=== PATIENT | male | born 1940 | race Caucasian/White ===

== ENCOUNTER → 2019-07-24 | Outpatient (CLI) | payer OTHER, BC ==
[~2019-07-24] MED LIST: ADULT LOW DOSE81 MG PO; CLOPIDOGREL75 MG PO; FLOMAX0.4 MG PO; GLUCOSAMINE CH1 EAC1 PO; LIPITOR40 MG PO; METOPROLOL SUCC50 MG PO; MIRALAX17 GM PO; NAPROXEN500 MG PO; NORCO 5-325 TA1 EAC1 PO; NORVASC 2.5 MG2.5 M1; NORVASC5 MG PO; PACERONE 200 M200 M1 PO; PEPCID20 MG PO; PRESERVISION A1 EAC2 PO; PROSCAR 5MG TABL5 M1 PO; SUPER OMEGA-31000 MG PO; TOLTERODINE TART4 MG PO; UNICOMPLEX M TA1 TA1 PO
== END ==
LOC: SJCVCIMAG 13:48 → SJCVC 13:48
DX: R07.9 Chest pain, unspecified (principal); E78.5 Hyperlipidemia, unspecified; I10 Essential (primary) hypertension; Z79.899 Other long term (current) drug therapy; M19.90 Unspecified osteoarthritis, unspecified site

== ENCOUNTER → 2019-07-31 | Outpatient (CLI) | payer OTHER, BC ==
[~2019-07-31] VITALS: Ht 177.8 cm; Wt 86.2 kg
[~2019-07-31] MED LIST changes: -ADULT LOW DOSE81 MG PO; -CLOPIDOGREL75 MG PO; -LIPITOR40 MG PO; -METOPROLOL SUCC50 MG PO; -MIRALAX17 GM PO; -PACERONE 200 M200 M1 PO; -PEPCID20 MG PO
[2019-07-31 09:29] VITALS: BP 165/73
[2019-07-31 09:48] LABS: HEMATOCRIT 45.6 % (42.0-52.0); HEMOGLOBIN 15.4 gm/dL (14.0-18.0); MCH 29.2 pg (26.0-34.0); MCHC 33.7 g/dL (28.0-37.0); MCV 86.6 fL (80.0-100.0); RBC 5.27 mil/uL (4.50-6.00); RDW 14.2 % (10.5-14.5); WBC 7.3 thou/uL (4.0-11.0)
[2019-07-31 09:58] LABS: CALCIUM 9.8 mg/dL (8.5-10.1); CREATININE 0.9 mg/dL (0.7-1.3); POTASSIUM 4.2 mmol/L (3.5-5.1)
--- NOTE | 2019-07-31 19:49 | EKG ---
[address] [place] [address] ELECTROCARDIOGRAM REPORT Name: KEYANNA DUFFY [id number] Admission: 07/31/19 Attend Phys: Poli Blanton Discharge: Date of : 38 Report #: [id number] THIS REPORT FOR: //name// [facility] Test Date: 2019-07-31 Test Time: 10:21:40 Pat Name: KEYANNA TATI Department: Room: Gender: M Environmental Engineer: Valorie OBRIEN : 1940 Requested By: Poli Blanton Order Number: [id number] MD: Keshav Kinney Measurements Intervals [place] Rate: 73 P: 58 NV: 168 QRS: 52 QRSD: 117 T: 47 QT: 423 QTc: 467 Interpretive Statements Sinus rhythm Left ventricular hypertrophy Borderline T abnormalities, lateral leads No previous ECG available for comparison Electronically Signed On 07-31-2019 19:49:06 CARBONATOR by Keshav Kinney [email or web address] <ELECTRONICALLY SIGNED> By: Keshav Kinney MD, [facility] 07/31/191948 1021 20 Keshav Kinney MD, FACC /EPI
--- NOTE | 2019-08-01 11:00 | CATHLAB ---
[facility] [address] [address] INVASIVE PROCEDURE REPORT Name: KEYANNA DUFFY Room #: REG [facility] [id number] Admission: 07/31/19 Attend Phys: Poli Littlejohn Discharge: Date of : 39 Report #: [id number] THIS REPORT FOR: //name// APPROVED REPORT Study performed: 07/31/2019 11:45:02 Patient Details Patient Status: Out-Patient Room #: The patient is a 79 year-old male Event Personnel Poli Blanton Family Helper, Azam Parra RN, Neema Cruz RTR, Anh Cárdenas Ja'net RTR Monitor, Juliana Villarreal RN RN, Lizzeth Alston RTR Monitor Procedures Performed Art Access - R femoral artery* Left Heart Cath w/or w/o Coronaries [id number] [facility] [address] Initial Mod Sed Same Phys/QHP Gr 148707 21463 Mod Sed Same Phys/QHP Ea 151060 Hemostasis with Manual pressure, supervision of conscious sedation Indication Chest pain Risk Factors Hypercholesterolemia, Hypertension Procedure Narrative The Right Groin^ was infiltrated with 1% Lidocaine subcutaneous anesthesia. A PINNACLE 4FR Sheath #[id number] sheath was inserted into the RFA 4 fr^. Coronary angiography was performed using coronary diagnostic catheters. The right coronary system was accessed and visualized with a JR4 catheter. The left coronary system was accessed and visualized with a JL4 catheter. The left ventricle was accessed and visualized with a Pigtail catheter. Left ventriculogram was performed in 30 degree projection. Hemostasis was obtained with manual pressure following sheath removal without any complications. The patient tolerated the procedure well and there were no complications associated with the procedure. There was no hematoma. Intraoperative Conscious Sedation Sedation start time: 1210 Case end Time: [address] [address] INVASIVE PROCEDURE REPORT Name: KEYANNA DUFFY Room #: REG ELMA [place]#: [id number] Admission: 07/31/19 Attend Phys: Poli Littlejohn Discharge: Date of : 39 Report #: [id number] Versed 2 mg Fluoro Time: 2.25 minutes Dose: DAP 3507.10 cGycm2 472 mGy Contrast Type and Amount: Omnipaque 55 ml Coronary Angiography The patient's coronary anatomy is right dominant. Diagnostic Cath Left Main Left main is normal origin and caliber bifurcates that into the descending left circumflex. Pre-of high-grade disease LAD Caliber type III vessel which in its proximal course has a narrowing that extends almost entirely throughout the proximal LAD. This narrowing is approximately 40-50%. At the beginning of the proximal mid LAD there is an eccentric lesion that appears to be flow limiting to some extent. He continues in the anterior interventricular sulcus were in its distal portion of the mid LAD is a narrowing that appears to be greater than 70% which is focal in nature. The vessel then continues on terminating in the posterior apical wall is a small bifurcating branch Diagonal 1 Small caliber vessel with a high-grade proximal lesion in the first third of the vessel then reconstitutes and continues on the antral lateral wall Diagonal 2 Small insignificant caliber vessel Circumflex Moderate caliber nondominant vessel which courses in the AV groove giving rise to a moderate caliber marginal branches Dooley proceeds along the lateral aspect of the heart bifurcating with luminal regularities but no high-grade lesions noted. The circumflex department and continues on terminating as a moderate caliber bifurcating posterior wall branch OM1 Moderate caliber vessel with luminal irregularities and no high-grade lesions noted OM2 Moderate caliber bifurcating vessel has a 50% ostial lesion. He continues on towards the lateral posterior aspect of the left ventricle with luminal irregularities only Right Coronary Large-caliber dominant vessel with normal origin tortuous course towards the posterior crux of the heart. There is moderate clarity is noted throughout the vessel with a high-grade lesion prior to the posterior descending artery. The vessel then continues on with moderate disease as a posterior lateral wall branch. RV marginal branch arising which is. Should be: Dominant extending in the posterior aspect of the left ventricle with a significant greater than 70% proximal lesion R PDA Wall to moderate caliber vessel with only mild luminal [facility] [address] [place] [address] INVASIVE PROCEDURE REPORT Name: KEYANNA DUFFY Room #: REG ELMA [place]#: [id number] Admission: 07/31/19 Attend Phys: Poli Littlejohn Discharge: Date of : 39 Report #: [id number] irregularities in its course caliber vessel Left Ventriculography Left Ventriculography was not performed. Hemodynamics The aortic pressure is 157/61 mmHg with a mean of 47 mmHg. The left ventricular pressure is 154/10 mmHg with a mean of mmHg. The left ventricular end diastolic pressure is 17 mmHg. Conclusion 1. Coronary disease, severe, two-vessel involving the proximal mid LAD and the right coronary artery 2. Abnormal urinalysis with elevated left ventricular end-diastolic pressures Recommendations Cardiac Risk Reduction Program CABG <ELECTRONICALLY SIGNED> By: Poli Blanton MD 08/01/19 1059 1059 1059 Poli Blanton MD /INF
== END | disposition home or self-care (01) ==
LOC: CATH 09:03
PROVIDERS: Internal Medicine
DX: R07.9 Chest pain, unspecified (principal); I25.10 Atherosclerotic heart disease of native coronary artery without angina pectoris; I10 Essential (primary) hypertension; E78.00 Pure hypercholesterolemia, unspecified; Z98.890 Other specified postprocedural states; Z79.899 Other long term (current) drug therapy

== ENCOUNTER → 2019-08-01 | Outpatient (CLI) | payer OTHER, BC | LOC: SJCVC 10:02 → SJCVCIMAG 10:02 | DX: Z01.818 Encounter for other preprocedural examination (principal); I65.23 Occlusion and stenosis of bilateral carotid arteries; I25.10 Atherosclerotic heart disease of native coronary artery without angina pectoris ==

== ENCOUNTER → 2019-08-07 | Outpatient (CLI) | payer OTHER, BC | LOC: ULTRA 09:45 | DX: I25.10 Atherosclerotic heart disease of native coronary artery without angina pectoris (principal); Z95.1 Presence of aortocoronary bypass graft ==

== ENCOUNTER 2019-08-17 06:29 | Inpatient (IN) | payer OTHER, BC ==
[2019-08-07 12:15] LABS: BASOPHILS 0.5 % (0.0-2.0); EOSINOPHILS 2.4 % (0.0-3.0); HEMATOCRIT 45.8 % (42.0-52.0); HEMOGLOBIN 15.4 gm/dL (14.0-18.0); MCH 29.1 pg (26.0-34.0); MCHC 33.6 g/dL (28.0-37.0); MCV 86.4 fL (80.0-100.0); MONOCYTES 8.4 % (1.0-8.0); PLATELET COUNT 241 thou/uL (150-400); POLYS 59.7 % (36.0-66.0); RBC 5.29 mil/uL (4.50-6.00); WBC 6.7 thou/uL (4.0-11.0)
[2019-08-07 12:16] LABS: URINE BILIRUBIN NEGATIVE (Negative); URINE BLOOD TRACE (Negative); URINE CLARITY CLEAR; URINE COLOR YELLOW; URINE GLUCOSE-RANDOM* NEGATIVE (Negative); URINE KETONES NEGATIVE (Negative); URINE LEUKOCYTES-REFLEX TRACE (Negative); URINE NITRITE-REFLEX NEGATIVE (Negative); URINE PROTEIN (DIPSTICK) NEGATIVE (Negative); URINE SPECIFIC GRAVITY 1.015 (1.005-1.035)
[2019-08-07 12:29] LABS: APTT 27.9 Seconds (24.5-32.8)
[2019-08-07 12:37] LABS: ALBUMIN 4.3 g/dL (3.4-5.0); CALCIUM 9.5 mg/dL (8.5-10.1); CREATININE 0.9 mg/dL (0.7-1.3); POTASSIUM 4.7 mmol/L (3.5-5.1); TOTAL BILIRUBIN 0.7 mg/dL (<0.1-1.0); TOTAL PROTEIN 7.6 g/dL (6.4-8.2)
[2019-08-08 11:36] LABS: GLYCOHEMOGLOBIN (HGB A1C) 5.5 % (4.8-5.6)
[~2019-08-17] VITALS: Ht 177.8 cm; Wt 83.5 kg
[2019-08-20] VITALS (18 sets, daily range): BP systolic 109–171; BP diastolic 48–68
[2019-08-20 10:07] LABS: HEMATOCRIT 43.7 % (42.0-52.0); HEMOGLOBIN 14.5 gm/dL (14.0-18.0); MCH 28.8 pg (26.0-34.0); MCHC 33.3 g/dL (28.0-37.0); MCV 86.5 fL (80.0-100.0); RBC 5.05 mil/uL (4.50-6.00); RDW 14.2 % (10.5-14.5); WBC 6.8 thou/uL (4.0-11.0)
[2019-08-20 12:49] LABS: APTT 32.1 Seconds (24.5-32.8); FIBRINOGEN 114.1 mg/dL (210-360); INR 1.7; PROTIME 17.2 Seconds (9.3-11.4)
[2019-08-20 13:11] LABS: HEMATOCRIT 27.9 % (42.0-52.0); MCH 28.3 pg (26.0-34.0); MCHC 32.5 g/dL (28.0-37.0); MCV 87.2 fL (80.0-100.0); RBC 3.2 mil/uL (4.50-6.00); RDW 14.1 % (10.5-14.5); WBC 12.4 thou/uL (4.0-11.0)
[2019-08-20 13:13] LABS: HEMOGLOBIN 9.1 gm/dL (14.0-18.0)
[2019-08-20 13:29] LABS: POC BE 3 mmol/L (-2.0 to +3.0); POC CA IONIZED 4.7 mg/dL (4.5-5.3); POC GLUCOSE 112 mg/dL (70-99); POC HCO3 27.6 mmol/L (22.0-26.0); POC HEMOGLOBIN 12.6 g/dL (14.0-18.0); POC POTASSIUM 4.3 mmol/L (3.5-5.1); POC SODIUM 137 mmol/L (136-145); POC pCO2 41.4 mmHg (35.0-45.0); POC pH 7.432 (7.360-7.450)
[2019-08-20 13:29] LABS: POC BE 4 mmol/L (-2.0 to +3.0); POC GLUCOSE 138 mg/dL (70-99); POC HCO3 27.8 mmol/L (22.0-26.0); POC HEMOGLOBIN 9.9 g/dL (14.0-18.0); POC POTASSIUM 4.8 mmol/L (3.5-5.1); POC SODIUM 136 mmol/L (136-145); POC pH 7.484 (7.360-7.450)
[2019-08-20 13:29] LABS: POC BE 3 mmol/L (-2.0 to +3.0); POC CA IONIZED 4.5 mg/dL (4.5-5.3); POC GLUCOSE 116 mg/dL (70-99); POC HCO3 27.3 mmol/L (22.0-26.0); POC HEMOGLOBIN 11.6 g/dL (14.0-18.0); POC POTASSIUM 4.2 mmol/L (3.5-5.1); POC SODIUM 138 mmol/L (136-145); POC pCO2 39.7 mmHg (35.0-45.0); POC pH 7.445 (7.360-7.450)
[2019-08-20 13:29] LABS: POC BE 1 mmol/L (-2.0 to +3.0); POC CA IONIZED 4.7 mg/dL (4.5-5.3); POC GLUCOSE 119 mg/dL (70-99); POC HEMOGLOBIN 10.9 g/dL (14.0-18.0); POC SODIUM 139 mmol/L (136-145); POC pCO2 42.1 mmHg (35.0-45.0); POC pH 7.399 (7.360-7.450)
[2019-08-20 13:29] LABS: POC BE 2 mmol/L (-2.0 to +3.0); POC CA IONIZED 4.2 mg/dL (4.5-5.3); POC GLUCOSE 140 mg/dL (70-99); POC HCO3 26.2 mmol/L (22.0-26.0); POC HEMOGLOBIN 9.5 g/dL (14.0-18.0); POC POTASSIUM 4.9 mmol/L (3.5-5.1); POC SODIUM 137 mmol/L (136-145); POC pCO2 39.5 mmHg (35.0-45.0); POC pH 7.429 (7.360-7.450)
[2019-08-20 13:30] LABS: POC BE 3 mmol/L (-2.0 to +3.0); POC CA IONIZED 4.3 mg/dL (4.5-5.3); POC GLUCOSE 161 mg/dL (70-99); POC HCO3 27.8 mmol/L (22.0-26.0); POC HEMOGLOBIN 8.8 g/dL (14.0-18.0); POC SODIUM 136 mmol/L (136-145); POC pCO2 46.1 mmHg (35.0-45.0); POC pH 7.388 (7.360-7.450)
[2019-08-20 13:30] LABS: POC BE 3 mmol/L (-2.0 to +3.0); POC CA IONIZED 4.3 mg/dL (4.5-5.3); POC GLUCOSE 152 mg/dL (70-99); POC HEMOGLOBIN 8.8 g/dL (14.0-18.0); POC POTASSIUM 5.1 mmol/L (3.5-5.1); POC SODIUM 136 mmol/L (136-145); POC pCO2 44.6 mmHg (35.0-45.0); POC pH 7.405 (7.360-7.450)
[2019-08-20 13:30] LABS: POC BE 2 mmol/L (-2.0 to +3.0); POC CA IONIZED 4.8 mg/dL (4.5-5.3); POC GLUCOSE 141 mg/dL (70-99); POC HCO3 26.3 mmol/L (22.0-26.0); POC HEMOGLOBIN 8.8 g/dL (14.0-18.0); POC POTASSIUM 4.2 mmol/L (3.5-5.1); POC SODIUM 138 mmol/L (136-145); POC pCO2 41.4 mmHg (35.0-45.0)
[2019-08-20 13:48] LABS: HEMATOCRIT 36.4 % (42.0-52.0); MCH 28.7 pg (26.0-34.0); MCV 86.8 fL (80.0-100.0); RBC 4.2 mil/uL (4.50-6.00); RDW 14.2 % (10.5-14.5); WBC 17.5 thou/uL (4.0-11.0)
--- NOTE | 2019-08-20 13:55 | NUR ---
1330 PT ARRIVE FROM OR WITH OR STAFF, ANETHSTESIA AND SURGEON. NO PROPOFOL FOR SEDATION. CARDENE GTT FOR BP. ON MONITOR AND VIGILANCE, LABS DRAWN, RADHA MCALLISTER. WAITING FOR MEDS FROM PHARM.
[2019-08-20 13:56] LABS: CALCIUM 7.7 mg/dL (8.5-10.1); CREATININE 0.9 mg/dL (0.7-1.3); MAGNESIUM 2.3 mg/dL (1.8-2.4); POTASSIUM 4.2 mmol/L (3.5-5.1)
[2019-08-20 13:57] LABS: BE(vivo) -3.4 mmol/L (-2 to +3); HCO3 21.6 mmol/L (22.0-26.0); PCO2 38.8 mmHg (35.0-45.0); PO2 165.7 mmHg (80.0-100.0); pH 7.364 (7.360-7.450); sO2 99.1 % (92.0-98.0)
[2019-08-20 13:57] LABS: APTT 27.8 Seconds (24.5-32.8); INR 1.3; PROTIME 13.1 Seconds (9.3-11.4)
[2019-08-20 15:48] LABS: FIBRINOGEN 157.6 mg/dL (210-360)
[2019-08-20 17:51] LABS: POTASSIUM 4.4 mmol/L (3.5-5.1)
[2019-08-20 18:42] LABS: CALCIUM 7.8 mg/dL (8.5-10.1); CREATININE 1.1 mg/dL (0.7-1.3); MAGNESIUM 2.1 mg/dL (1.8-2.4)
--- NOTE | 2019-08-20 20:13 | NUR ---
Care assumed at 1900. Propofol weaned down to 2 mcg/kg/min and CPAP trial started at 1930. Pt tolerating well. Pulling Tv of 400-500, respirations 20-35, no signs of labored breathing. Mediastinal tubes CTx2 to -20 cmH2O with 30-40 cc sero-sanguinous drainage; left plural CTx1 to -20 cmH2O, no drainage. Urine output 100-200 cc per hour. CO, CI, PAP, and SVR within acceptable parameters.
[2019-08-20 20:34] LABS: BE(vivo) -2.7 mmol/L (-2 to +3); HCO3 21.6 mmol/L (22.0-26.0); PO2 108.2 mmHg (80.0-100.0); pH 7.397 (7.360-7.450)
--- NOTE | 2019-08-20 21:04 | NUR ---
Pt extubated at 2040 after CPAP x1 hour. ABG's within normal parameters. Pt placed on 40% face humidified face shield. Fentanyl given for c/o of back pain.
[2019-08-21] VITALS (23 sets, daily range): BP systolic 104–143; BP diastolic 48–73
[2019-08-21 05:48] LABS: MAGNESIUM 2.3 mg/dL (1.8-2.4); POTASSIUM 4.3 mmol/L (3.5-5.1)
[2019-08-21 05:57] LABS: HEMATOCRIT 36.8 % (42.0-52.0); HEMOGLOBIN 12.1 gm/dL (14.0-18.0); MCH 28.7 pg (26.0-34.0); MCV 86.9 fL (80.0-100.0); RBC 4.23 mil/uL (4.50-6.00); RDW 14.5 % (10.5-14.5); WBC 14.3 thou/uL (4.0-11.0)
[2019-08-21 06:42] LABS: INR 1.1; PROTIME 10.9 Seconds (9.3-11.4)
--- NOTE | 2019-08-21 07:11 | NUR ---
Pt progressing toward goals. As per previous note, pt was extubated at 2030. Has been titrated down to 3 L nasal canula with O2 sat remaining > 92%. 310 cc sero-sanguinous drainage from mediastinal tubes, only 60 cc sero-sanguinous drainage from left plural. Meds and plural remain patent to -20 cmH2O, no air leak or crepitus. Urine output has been >30 cc/hr throughout the night. Pt taking clear liquids and pudding without nausea. All surgical dressings clean, dry, and intact. Pt up to chair with assist x2 at 0500.
--- NOTE | 2019-08-21 07:55 | NUR ---
chart review. pt up in recliner chair, o2 noted per nasal cannula. intro to dcp, transition of care ie hh and outpt rehab. pt a & o x 4, pleasant and able to make his needs know. marvel preferrs going by nurys. he reported " don't think going home today but i want to go home. live with ewelina, safe and support at home. work, self employed - raise cattle. [address]. live in [facility] [facility]. independent. no dme, drives vehicle and manage own medication. no hh or rehab in past but i would like home health nurse"/nurys. will cont following as needed for dc needs.
--- NOTE | 2019-08-21 09:11 | NUR ---
Nutrition: POD 1 CABG. Pt remains in ICU. Will followup to determine education needs when out of ICU/closer to D/C.
--- NOTE | 2019-08-21 20:05 | NUR ---
ASSUMED CARE @ 0700 08/21/19, PT ASSESSMENTS AND VSS COMPLETE PER ICU PROTOCOL. SWANS DARRYN D'CD AND MEDIASTINALS DC'D PER DR HALLMAN ORDERS, NO COMPLICATIONS NOTED . DR REY ALSO INFORMED ABOUT THE 30ML/HR URINE OUTPUT, NO NEW ORDERS RECIEVED. PT PROGRESSING TOWARDS POC.
--- NOTE | 2019-08-22 03:22 | NUR ---
ASSUMED CARE OF PATIENT AT 1900. DR ESPINAL INTO SEE PATIENT. OK TO DC ART LINE. NO OTHER CONCERNS AT THIS TIME. PAIN BEING MANAGED WITH PO HYDROCODONE. STATES RELIEF. PROGRESSING TOWARDS POC GOALS.
[2019-08-22 05:14] LABS: BE(vivo) -0.9 mmol/L (-2 to +3); HCO3 23.6 mmol/L (22.0-26.0); PCO2 38.6 mmHg (35.0-45.0); PO2 66.3 mmHg (80.0-100.0); pH 7.404 (7.360-7.450); sO2 93.3 % (92.0-98.0)
[2019-08-22 05:44] LABS: HEMATOCRIT 31.6 % (42.0-52.0); HEMOGLOBIN 10.4 gm/dL (14.0-18.0); MCH 28.8 pg (26.0-34.0); MCHC 32.9 g/dL (28.0-37.0); MCV 87.4 fL (80.0-100.0); RBC 3.62 mil/uL (4.50-6.00); RDW 14.7 % (10.5-14.5); WBC 14.9 thou/uL (4.0-11.0)
[2019-08-22 06:43] LABS: CALCIUM 8.3 mg/dL (8.5-10.1); CREATININE 0.9 mg/dL (0.7-1.3); POTASSIUM 4.2 mmol/L (3.5-5.1)
[2019-08-22 07:00] VITALS: BP 116/52
[2019-08-22 08:00] VITALS: BP 117/60
--- NOTE | 2019-08-22 08:15 | O ---
[facility] [place] [address] OPERATIVE REPORT Name: KEYANNA DUFFY Room #: 238-P ADM IN M.R.#: [id number] Admission: 08/20/19 Attend Phys: Kyle Newman MD Discharge: Date of : 39 Report #: [id number] THIS REPORT FOR: cc: EDY BLAIR Physician not on staff Kyle Newman MD ~ CC: EDY Newman Physician staff DATE OF SERVICE: 08/20/2019 PREOPERATIVE DIAGNOSIS: Coronary artery disease. POSTOPERATIVE DIAGNOSIS: Coronary artery disease. OPERATION: Coronary artery bypass x 4 including left internal mammary artery to left anterior descending artery, saphenous vein to diagonal and marginal and saphenous vein to posterior descending artery. Endoscopic harvest, left greater saphenous vein. SURGEON: Kyle Newman MD FOUNTAIN WAITRESS/WAITER: NEHEMIAH Fleming. ANESTHESIA: General. INDICATIONS: The patient is an 79-year-old seen for Dr. Blanton. The patient has progressive shortness of breath and catheterization demonstrates 3-vessel coronary artery disease with reasonable ventricular function. FINDINGS AND TECHNIQUE: After general anesthesia was established, left greater saphenous vein was harvested using an endoscopic approach and prepared for use as a conduit. Exposure was obtained through median sternotomy. Left internal mammary artery was harvested. Pericardial well was made. Cannulation sutures were placed. Heparin was given. Aorta was cannulated. Right atrium was cannulated. Cardioplegia needle was positioned in the aortic root. Retrograde cardioplegic catheter was placed in coronary sinus. Cardiopulmonary bypass was established. The aorta was cross clamped. Antegrade and retrograde cardioplegia were given. Ice was poured into the pericardial well. The heart was stopped. During electromechanical arrest, the distal anastomoses were performed and end-to-side anastomosis was made between vein and the posterior descending artery. Cold cardioplegia was given. A separate segment of vein was sewn in [facility] [address] [place] [address] OPERATIVE REPORT Name: KEYANNA DUFFY Amanda Room #: 238-P ADM IN R.#: [id number] Admission: 08/20/19 Attend Phys: Kyle Newman MD Discharge: Date of : 39 Report #: [id number] end-to-side fashion to the large marginal artery. This was an intramyocardial vessel. I looked for the more distal second marginal, but it was either in the AV groove or too deep into the myocardium to say. The same segment of vein was sewn in end-to-side fashion to the diagonal artery. Cold cardioplegia was given. Left internal mammary artery was sewn to the left anterior descending artery. Patency of this vessel was checked with the temperature technique and the Doppler. Cold cardioplegia was given. Two proximal anastomoses were performed. When these were complete, warm retrograde cardioplegia was given followed by warm continuous blood to the coronary sinus. When this infusion was complete the crossclamp was removed, de-airing maneuvers were performed. The anastomoses were inspected and found to be satisfactory. As the patient warmed, nice cardiac activity resumed, chest tubes and pacing wires were placed, a marker was placed around the proximal anastomoses. When the patient was warmed, he was weaned from cardiopulmonary bypass. Venous cannula was removed. Protamine was given, the aortic cannula was removed. Flows were measured in the bypass grafts. When hemostasis was satisfactory, chest was irrigated with antibiotic solution and closed in the usual fashion. The patient was taken to the Intensive Care Unit in good condition having tolerated the procedure well. All counts reported as correct. <ELECTRONICALLY SIGNED> By: Kyle Newman MD 08/22/19 0815 0736 Kyle Newman MD /nt
[2019-08-22 09:00] VITALS: BP 121/54
[2019-08-22 09:38] VITALS: BP 117/47
--- NOTE | 2019-08-22 18:31 | NUR ---
PT WORKED WITH PT/OT AND WAS UP IN CHAIR. PT PROGRESSING TOWARDS GOALS.
--- NOTE | 2019-08-22 18:43 | NUR ---
PT VOIDED 15ML URINE SINCE HAY DISOCNTIINUED, BLADDER SCAN REVEALS 80MLS URINE. WILL CONTINUE TO ASSESS.
[2019-08-22 20:34] VITALS: BP 122/57
[2019-08-22 23:24] VITALS: BP 126/60
[2019-08-23] VITALS (8 sets, daily range): BP systolic 117–131; BP diastolic 49–72
--- NOTE | 2019-08-23 11:16 | NUR ---
ASSUMED CARE 0700 08/23/19, ASSESSMENTS AND VSS COMPLETE CCU ORDERS. POST OP DAY X3, ALL CHEST TUBES AND LINES DC'D EXCEPT PIV. PT'S SHOWS CONCERN ABOUT PT NOT BEING ON TOLTERIDINE, DR LEWIS INFORMED, RN GIVEN THE GO AHEAD TO PUT IN THE ORDER, BUT PHARMACY DOES NOT CARRY THAT MEDICATION, THEY CARRY OXYBUTYNIN THE SUB, DR LEWIS CALLED BACK, RN ASKED TO ASK DR REY IF IT WAS OK. DR REY SAIDS IT OK FOR THE OXYBUTYNIN OR THEY CAN BRING IN THEIR OWN TOLTERIDINE. I RELAYED ALL THIS TO THE PT AND PT'S , PT OPTED TO TAKE THE OXYNUTYNIN INSTEAD.
--- NOTE | 2019-08-23 12:29 | NUR ---
discussed during los, possible will be ready to dc tuesday or tuesday.
--- NOTE | 2019-08-24 02:44 | NUR ---
ASSESSMENTS CHARTED, MEDS GIVEN CHARTED. PATIENT RESTING IN BED DURING SHIFT. POST OP CABG X 4. SINUS RHYTHM ON TELEMETRY, CLEAR OVER DIMINISHED ON ROOM AIR. USING URINAL AT BEDSIDE. UP AT DAT IN ROOM. AWILDA DRESSING IN PLACE OVER CENTRAL DRESSING. LEFT LEG VEIN HARVEST. AT START OF SHIFT, PATIENT C/O PAIN 4/10, DID NOT WANT PAIN MED, HAD FAMILY AT BEDSIDE DISTRACTING HIM. PATIENTS NIGHT MEDS WERE GIVEN BUT PATIENT REFUSED TO TAKE THE STATIN MED STATING THAT HIS SYSTEM DOES NOT HANDLE STATINS. PLAN OF CARE IS TO CONTINUE STRENGTHENING PRIOR TO DISCHARGE.
[2019-08-24 04:30] VITALS: BP 125/60
[2019-08-24 05:57] LABS: HEMATOCRIT 32.1 % (42.0-52.0); HEMOGLOBIN 10.9 gm/dL (14.0-18.0); MCH 29.4 pg (26.0-34.0); MCHC 33.9 g/dL (28.0-37.0); MCV 86.8 fL (80.0-100.0); RBC 3.7 mil/uL (4.50-6.00); RDW 14.2 % (10.5-14.5); WBC 10.6 thou/uL (4.0-11.0)
[2019-08-24 06:04] LABS: CALCIUM 8.6 mg/dL (8.5-10.1); CREATININE 0.9 mg/dL (0.7-1.3); POTASSIUM 3.9 mmol/L (3.5-5.1)
[2019-08-24 07:40] VITALS: BP 160/67
[2019-08-24 11:50] VITALS: BP 146/69
--- NOTE | 2019-08-24 13:36 | NUR ---
Nutrition followup: post op day 4 CABG. Has transferred out of ICU. Appetite has been poor. Ensure enlive was ordered but pt does not like. Will trial magic cups. Obtained dinner preference for tonight. Pt hoping to go home tomorrow. Has heart healthy diet materials in [place]. For now, encourage goal of adequate intake.
--- NOTE | 2019-08-24 15:00 | NUR ---
CALM, COOPERATIVE. AAOX4. AT BEDSIDE. WORKING WITH PT AND CARDIAC REHAB. BED BATH PER OT. HE WILL SHOWER TOMORROW AND DR. REY WILL CHANGE HIS AWILDA. SR PER TELE. MIRALAX GIVEN FOR OBSTIPATION, LAST BM 08/19. WILL CONTINUE TO FOLLOW CLOSELY.
--- NOTE | 2019-08-24 16:18 | NUR ---
Pt is doing well with therapy walking on the unit. is very supportive and involved. Possible weekend dc. Referral sent to Lizy Chaudhari should he need hh rn visits at dc.
[2019-08-24 17:00] VITALS: BP 117/51
[2019-08-24 20:15] VITALS: BP 133/58
[2019-08-25 04:55] VITALS: BP 128/54
--- NOTE | 2019-08-25 05:56 | NUR ---
ASSESSMENTS CHARTED, MEDS GIVEN CHARTED. PATIENT RESTING IN ROOM WITH AT BEDSIDE. PATIENT WALKED TWICE AROUND THE UNIT PRIOR TO GOING TO BED. SINUS RHYTHM WITH BBB ON TELEMETRY. ON ROOM AIR. CHEST XRAY SHOWS STABLE SMALL BILATERAL PE AND BIBASILAR ATELECTASIS. PLAN OF CARE IS FOR PATIENT TO TAKE SHOWER TODAY, GET NEW AWILDA DRESSING, THEN POSSIBLY GOING HOME. FALL PRECAUTIONS IN PLACE. DENIED ANY PAIN.
[2019-08-25 07:50] VITALS: BP 150/63
[2019-08-25 11:30] VITALS: BP 114/54
--- NOTE | 2019-08-25 15:21 | NUR ---
ASSUMED CARE OF PT AT 0700. INITIAL MEETING AT 0715, PT ASLEEP IN BED, EASILY AROUSABLE. AT SIDE. ASSESSED, VSS, AT 0750, DISCUSSED POC, PT VERBALIZED UNDERSTANDING. PT SHOWERED WITH OT LATER IN THE DAY, AWILDA DRESSING REPLACED BY DR AFTER SHOWER. OFFERED TO SEND PT HOME, BUT BOTH PT AND THOUGHT IT WOULD BE BETTER TO STAY ONE MORE NIGHT.
[2019-08-25 16:30] VITALS: BP 137/35
[2019-08-25 20:33] VITALS: BP 115/55
[2019-08-26] VITALS (8 sets, daily range): BP systolic 112–135; BP diastolic 47–55
--- NOTE | 2019-08-26 03:03 | NUR ---
ASSESSMENTS CHARTED, MEDS GIVEN CHARTED. PATIENT CONTINUES TO IMPROVE. WALKED FREQUENTLY DURING DAY SHIFT. USING I.S. FREQUENTLY. ALERT AND ORIENTED, SINUS RHYTHM WITH BBB ON TELEMETRY. ON ROOM AIR. PATIENT STILL WAITING FOR FIRST BOWEL MOVEMENT POST SURGERY, PASSING FLATUS, MIRALAX GIVEN. UP AT DAT IN ROOM AND HALLWAYS. SURGICAL SITES ARE HEALING, PATIENT TOOK SHOWER DURING DAY, STERNAL DRESSING REAPPLIED. PLAN OF CARE IS TO HAVE BOWEL MOVEMENT THEN GO HOME.
[2019-08-26] MEDS ORDERED: CLOPIDOGREL75 MG PO (18:08)
[2019-08-26] MEDS ORDERED: LIPITOR40 MG PO (18:08)
[2019-08-26] MEDS ORDERED: METOPROLOL SUCC50 MG PO (18:08)
[2019-08-26] MEDS ORDERED: PEPCID20 MG PO (18:08)
[2019-08-26] MEDS ORDERED: MIRALAX17 GM PO (18:08)
[2019-08-26] MEDS ORDERED: ADULT LOW DOSE81 MG PO (18:08)
--- NOTE | 2019-08-26 18:36 | NUR ---
PT CARE ASSUMED APPROXIMATELY 0700. PT ASSESSMENTS CHARTED. PT MEDICATION CHARTED. SECOND IV PLACED IN RIGHT BACK FOREARM AFTER CT CLAIMED IV IN LEFT ANTICUBITAL DIDN'T FLUSH FAST ENOUGH. PT WALKED THROUGH UNIT WITH SPOUSE WITHOUT PROBLEMS. AWILDA C/D/I. PT DENIES PAIN.
[2019-08-26] MEDS ORDERED: PACERONE 200 M200 M1 PO (18:56)
--- NOTE | 2019-08-26 19:48 | NUR ---
PT DISCHARGE PAPERWORK REVIEWED WITH PT AND SPOUSE. BOTH DENY QUESTIONS OR CONCNERS REGARDING POST HOSPITAL CARES AND F/U. IV OUT, TELEL BOX OFF. HOSPITAL STAFF ESCORTED PT OUT.
--- NOTE | 2019-09-14 15:23 | EKG ---
[facility] [place] [address] ELECTROCARDIOGRAM REPORT Name: TATI,KEYANNA D Room #: 207-P [facility] IN M.R.#: [id number] Admission: 08/20/19 Attend Phys: Kyle Newman MD Discharge: 08/26/19 Date of : 38 Report #: [id number] THIS REPORT FOR: cc: EDY BLAIR Physician not on staff Walker Pineda MD ~ THIS REPORT FOR: //name// [facility] Test Date: 2019-08-20 Test Time: 15:58:15 Pat Name: KEYANNA DUFFY Department: Room: [facility] Gender: M Doctor Assistant: Karla FARFAN : 1940 Requested By: Kyle Newman Order Number: [id number] MD: Walker Pineda Measurements Intervals [place] Rate: 90 P: 59 CA: 160 QRS: 28 QRSD: 105 T: 45 QT: 358 QTc: 438 Interpretive Statements Sinus rhythm Borderline abnrm T, anterolateral leads Compared to ECG 07/31/2019 10:21:40 Left ventricular hypertrophy no longer present T-wave abnormality no longer present Electronically Signed On 08-20-2019 16:55:05 COLD ROLL PACKER SHEET IRON by Walker Pineda [email or web address] <ELECTRONICALLY SIGNED> By: Walker Pineda MD 08/20/19 1655 1558 1558 Walker Pineda MD /EPI
--- NOTE | 2019-09-14 15:23 | EKG ---
[facility] [place] [address] ELECTROCARDIOGRAM REPORT Name: KEYANNA DUFFY Amanda Room #: 207-P [facility] IN M.R.#: [id number] Admission: 08/20/19 Attend Phys: Kyle Newman MD Discharge: 08/26/19 Date of : 38 Report #: [id number] THIS REPORT FOR: cc: EDY BLAIR Physician not on staff Keshav Kinney MD [facility] ~ THIS REPORT FOR: //name// [facility] Test Date: 2019-08-21 Test Time: 07:23:45 Pat Name: KEYANNA DUFFY Department: Room: 238 P Gender: M Justice Court Judge: FUAD : 1940 Requested By: Kyle Newman Order Number: [id number] MD: Keshav Kinney Measurements Intervals [place] Rate: 86 P: 59 MS: 157 QRS: 12 QRSD: 109 T: 116 QT: 365 QTc: 437 Interpretive Statements Sinus rhythm Nonspecific T abnrm, anterolateral leads Compared to ECG 08/20/2019 15:58:15 No significant changes Electronically Signed On 08-21-2019 9:18:34 FRONT EDGER by Keshav Kinney [email or web address] <ELECTRONICALLY SIGNED> By: Keshav Kinney MD, [facility] 08/21/19917 2 2 Keshav Kinney MD, [facility] /EPI
--- NOTE | 2019-09-14 15:25 | EKG ---
[facility] [place] [address] ELECTROCARDIOGRAM REPORT Name: TATIGOLDIE SUAREZNACHO Patel Room #: 207-P [facility] IN M.R.#: [id number] Admission: 08/20/19 Attend Phys: Kyle Newman MD Discharge: 08/26/19 Date of : 38 Report #: [id number] THIS REPORT FOR: cc: EDY BLAIR Physician not on staff Keshav Kinney MD [facility] ~ THIS REPORT FOR: //name// [facility] Test Date: 2019-08-24 Test Time: 07:12:54 Pat Name: KEYANNA DUFFY Department: Room: 207 P Gender: M It Software Developer: FUAD : 1940 Requested By: Kyle Newman Order Number: [id number] MD: Keshav Kinney Measurements Intervals [place] Rate: 77 P: 43 [place]: 156 QRS: 26 QRSD: 114 T: 9 QT: 386 QTc: 437 Interpretive Statements Sinus rhythm Probable LVH with secondary repol abnrm Compared to ECG 08/21/2019 07:23:45 No significant changes Electronically Signed On 08-24-2019 8:13:45 ASSISTANT CHILD CARE TEACHER by Keshav Kinney [email or web address] <ELECTRONICALLY SIGNED> By: Keshav Kinney MD, [facility] 08/24/19 0813 1 1 Keshav Kinney MD, [facility] /EPI
== END 2019-08-26 19:50 | disposition home or self-care (01) | DRG 236 ==
LOC: PRE 06:29 → TBA 09:22 → ICU 08-20 05:47 → TBA 08-20 05:47 → PRE 08-20 13:10 → ICU 08-20 13:32 → PRE 08-20 15:47 → ICU 08-22 08:15 → 2N 08-23 16:47
PROVIDERS: ADMIT Surgery Vascular Surgery
PROC: 02100Z9 Bypass Coronary Artery, One Artery from Left Internal Mammary, Open Approach (ICD-10-PCS; principal; 2019-08-20)
PROC: 021209W Bypass Coronary Artery, Three Arteries from Aorta with Autologous Venous Tissue, Open Approach (ICD-10-PCS; 2019-08-20)
PROC: 06BQ4ZZ Excision of Left Saphenous Vein, Percutaneous Endoscopic Approach (ICD-10-PCS; 2019-08-20)
PROC: 5A1221Z Performance of Cardiac Output, Continuous (ICD-10-PCS; 2019-08-20)
DX: I25.10 Atherosclerotic heart disease of native coronary artery without angina pectoris (principal); I10 Essential (primary) hypertension; E78.5 Hyperlipidemia, unspecified; N40.0 Benign prostatic hyperplasia without lower urinary tract symptoms; M19.90 Unspecified osteoarthritis, unspecified site; E78.00 Pure hypercholesterolemia, unspecified; D72.829 Elevated white blood cell count, unspecified; R47.1 Dysarthria and anarthria; Z82.49 Family history of ischemic heart disease and other diseases of the circulatory system; Z98.42 Cataract extraction status, left eye; Z98.41 Cataract extraction status, right eye
CPT/HCPCS: 10078; 10081; 10203; 47000; 47001; 47002; 47297; 48888; 50010; 50249; 50409; 50456; 50498; 50668; 51301; 52131; 52259; 52314; 53327; 53358; 54118; 56455; 56524; 56525; 56526; 56527; 56528; 56531; 56534; 56668; 56760; 56898; 57093; 57116; 57167; 62110; 62950; 65003; 65047; 65090; 65120; 65130; 65135

== ENCOUNTER → 2019-09-12 | Outpatient (CLI) | payer OTHER, BC ==
[~2019-09-12] MED LIST changes: +ADULT LOW DOSE81 MG PO; +CLOPIDOGREL75 MG PO; +LIPITOR40 MG PO; +METOPROLOL SUCC50 MG PO; +MIRALAX17 GM PO; +PACERONE 200 M200 M1 PO; +PEPCID20 MG PO
== END ==
LOC: SJCVC 08:50
DX: I44.7 Left bundle-branch block, unspecified (principal); R94.31 Abnormal electrocardiogram [ECG] [EKG]; I25.10 Atherosclerotic heart disease of native coronary artery without angina pectoris; I10 Essential (primary) hypertension; E78.5 Hyperlipidemia, unspecified; N40.0 Benign prostatic hyperplasia without lower urinary tract symptoms; M19.90 Unspecified osteoarthritis, unspecified site; Z95.1 Presence of aortocoronary bypass graft; Z79.899 Other long term (current) drug therapy